=== PATIENT | male | born 1955 | race African-American/Black ===

== ENCOUNTER 2021-02-28 15:40 | Inpatient (IN) | payer BC, SELFPAY ==
[~2021-02-28] VITALS: Ht 177.8 cm; Wt 71.7 kg
[2021-02-28 15:40] VITALS: BP 129/92
[~2021-02-28 15:40] MED LIST: ALBU0.0952 IH; FLUT1DSK19 IH; [UNRECOGNIZED DRUG - CODE] IH
--- NOTE | 2021-02-28 15:45 | NUR ---
65 Y/O MALE BIBA FROM HOME C/O SOB XYESTERDAY. SPO2 68% RA, PT WAS PUT ON 15L NONREBREATHER WITH SPO2 98%. PT GIVEN ALBUTEROL TREATMENT AND WAS PLACED ON CPAP. PER MEDICS, DIMINISHED LUNG SOUNDS BILATERAL. LUNG SOUNDS CRACKLES. ABD SOFT NON TENDER. PT DENIES ANY PAIN. PMH:DENIES ALLERGIES: PREDNISONE
--- NOTE | 2021-02-28 15:45 | NUR ---
pt BIBA to bed 02 via satya. RN and RT at bedside.
--- NOTE | 2021-02-28 15:47 | NUR ---
PT PLACED ON BIPAP. SETTINGS 12/5 R 10 AND FIO2 28%. PT IS TACHYPNEIC SPO2 ADEQUATE AT THIS TIME. BIPAP IS PLUGGED INTO A RED OUTLET WITH ALARMS ON AND FUNCTIONING. WILL CONTINUE TO MONITOR.
[2021-02-28] MEDS ORDERED: ALBUTEROL SULFATE/IPRATROPIU 3 ML SOL IH ONE (16:05)
--- NOTE | 2021-02-28 16:10 | NUR ---
XRAY AT BEDSIDE
[2021-02-28 16:12] LABS: BASOPHILS # (AUTO) 0.2 K/uL (0.00-0.22); BASOPHILS % (AUTO) 0.9 % (0.0-2.0); EOSINOPHILS % (AUTO) 0.1 % (0.0-4.0); LYMPHOCYTES # (AUTO) 0.9 K/uL (2.0-11.5); NEUTROPHILS # (AUTO) 16.1 K/uL (1.8-7.7); RED BLOOD CELL COUNT(AUTO) 5.92 MIL/uL (4.20-6.10)
--- NOTE | 2021-02-28 16:15 | NUR ---
RT AT BEDSIDE PERFORMING BREATHING TX
--- NOTE | 2021-02-28 16:20 | NUR ---
[facility] THERAPY AND RESPIRATORY DRUG GIVEN ORDERED
[2021-02-28 16:27] LABS: HEMATOCRIT 44.5 % (36-52); HEMOGLOBIN 13.8 g/dL (12.0-18.0); MEAN CORPUSCULAR HEMOGLOBIN 23 pg (27-31); MEAN CORPUSCULAR HGB CONC 31 g/dL (33-37); MEAN CORPUSCULAR VOLUME 75.1 fL (80-94); MONOCYTES # (AUTO) 1.3 K/uL (0.8-1.0); MONOCYTES % (AUTO) 6.9 % (1.7-9.3); NEUTROPHILS % (AUTO) 87.1 % (42.2-75.2); PLATELET COUNT (AUTO) 352 K/uL (140-450); RED CELL DISTRIBUTION WIDTH 16.1 % (11.6-13.7); WHITE BLOOD COUNT (AUTO) 18.5 K/uL (4.8-10.8)
[2021-02-28 16:31] LABS: ALBUMIN 3.5 g/dL (3.4-5.0); ANION GAP 15.5 (8-16); CARBON DIOXIDE 26.6 mmol/L (21-32); CREATININE 1.2 mg/dL (0.6-1.3); POTASSIUM 4.1 mmol/L (3.5-5.1); TOTAL BILIRUBIN 0.6 mg/dL (0.0-1.0)
[2021-02-28] MEDS ORDERED: VANCOMYCIN IV SCH (16:40)
[2021-02-28] MEDS ORDERED: CEFEPIME 2,000 MG in DEXTROSE 5% 100 ML IV ONE (16:40)
[2021-02-28] MEDS ORDERED: DEXTROSE 5% IV SCH (16:40)
[2021-02-28] MEDS ORDERED: VANCOMYCIN 1,000 MG VIAL ONE (16:41)
[2021-02-28] MEDS ORDERED: VANCOMYCIN 500 MG VIAL ONE (16:41)
[2021-02-28] MEDS ORDERED: CEFEPIME 2,000 MG VIAL IV ONE (16:41)
--- NOTE | 2021-02-28 17:00 | NUR ---
PT STATES HE DOES NOT KNOW HIS HOME MEDICATIONS. LEFT MESSAGE FOR PT'S SAURABH.
[2021-02-28 17:28] VITALS: BP 121/87
[2021-02-28] MEDS ORDERED: guaiFENesin DM 200/20 MG-10 ML 10 ML UDC PO PRN (18:05)
[2021-02-28] MEDS ORDERED: ONDANSETRON 4 MG/2 ML VIAL IM/IVP PRN (18:05)
[2021-02-28] MEDS ORDERED: ACETAMINOPHEN 325 MG TAB PO PRN (18:05)
[2021-02-28] MEDS ORDERED: HYDROcodone/APAP 7.5/325 MG 1 TAB PO PRN (18:05)
[2021-02-28] MEDS ORDERED: ZOLPIDEM 5 MG TAB PO PRN (18:05)
[2021-02-28] MEDS ORDERED: ALBUTEROL SULFATE/IPRATROPIU 3 ML SOL IH PRN (18:05)
[2021-02-28] MEDS ORDERED: DOCUSATE SODIUM 100 MG GELCAP PO PRN (18:05)
[2021-02-28] MEDS ORDERED: POTASSIUM CHLORIDE 10 MEQ TABER PO PRN (18:05)
--- NOTE | 2021-02-28 18:08 | NUR ---
PT UNABLE TO PROVIDE URINE, ERMD MADE AWARE
--- NOTE | 2021-02-28 19:11 | NUR ---
Pt report given to SUNIL GRIFFIN. Transfer of care at this time.
--- NOTE | 2021-02-28 19:11 | NUR ---
REPORT RECEIVED FROM ELIAS SMITH. TRANSFER OF CARE AT THIS TIME.
--- NOTE | 2021-02-28 19:20 | NUR ---
PT IS SITTING UP IN BED. PT DENIED SOB, STATED HE FEELS BETTER. LUNG SOUNDS ARE DIMINISHED AT BASES (BILAT). ALL NEEDS MET AT THIS TIME. HOB ELEVATED. BED LOCKED IN LOWEST POSITION. SIDE RAILS X2.
[2021-02-28 19:26] LABS: PROTHROMBIN TIME 11.5 secs (10.8-13.4)
[2021-02-28] MEDS ORDERED: PIPERACILLIN/TAZOBACTAM 3.375 GM VIAL IV ONE ×2 (19:30→23:25)
[2021-02-28 19:35] LABS: CHOL/HDL RATIO 3.1 (1-4.5); FREE T4 (FREE THYROXINE) 0.85 ng/dL (0.76-1.46); MAGNESIUM 1.7 mg/dL (1.8-2.4); PHOSPHORUS 3.3 mg/dL (2.5-4.9); THYROID STIMULATING HORMONE 0.88 uIU/mL (0.34-3.74)
[2021-02-28 19:39] VITALS: BP 124/89
--- NOTE | 2021-02-28 19:39 | NUR ---
PT RECEIVED IN ED ON BIPAP 07/12 f10 28%. BIPAP IS PLUGGED INTO RED OUTLET W/ ALARMS ON AND AUDIBLE WILL CONTINUE TO MONITOR.
[2021-02-28] MEDS: PIPERACILLIN/TAZOBACTAM 3.375 GM in DEXTROSE 5% 50 ML IV SCH (19:40)
[2021-02-28] MEDS ORDERED: PANT40EC PO (19:47)
[2021-02-28] MEDS ORDERED: TACR1CAP17 PO (19:47)
[2021-02-28] MEDS ORDERED: [UNRECOGNIZED DRUG - CODE] PO (19:47)
[2021-02-28] MEDS ORDERED: CEL250 PO (19:47)
[2021-02-28] MEDS ORDERED: AZIT250T4 PO (19:47)
[2021-02-28] MEDS ORDERED: PRED5TAB7 PO (19:47)
[2021-02-28] MEDS ORDERED: SULF-58 PO (19:47)
[2021-02-28] MEDS: ALBUTEROL SULFATE/IPRATROPIU 3 ML SOL IH SCH (19:50)
--- NOTE | 2021-02-28 19:52 | NUR ---
CALLED AND GAVE REPORT TO ELIAS GARCIAS [id number].
--- NOTE | 2021-02-28 20:58 | NUR ---
Patient will be admitted to care of DR HYDE. Admited to TELE. Will go to room 106B. Belongings list completed. Report to ELIAS GARCIAS.
--- NOTE | 2021-02-28 21:10 | NUR ---
PT TRANSPORTED FROM ED TO 106. PT AMBULATED TO BED W/ ASSISTANCE. PT REMAINS ON BIPAP W/ NO CHANGES TO SETTINGS. BIPAP WAS PLUGGED INTO RED OUTLET AND ALARMS REMAIN ON AND AUDIBLE. VITAL MACHINE IS PLUGGED IN AND CONNECTED TO PT. WILL CONTINUE TO MONITOR
--- NOTE | 2021-02-28 21:11 | NUR ---
ADMITTED A MALE PATIENT FROM ER VIA [place] [id number]. CHIEF COMPLAINT OF SOB DX: PNA AND ACUTE RESPIRATORY FAILURE UNDER THE CARE OF DR. HYDE. ON BIPAP AT 28% FIO2 TOLERATING WELL. NO RESPIRATORY DISTRESS NOTED. ORIENTED TO ROOM, CALL LIGHT, STAFF. AMBULATORY. MRSA SCREENING DONE. SAFETY PRECAUTIONS IN PLACE. CALL LIGHT WITHIN REACH.
--- NOTE | 2021-02-28 21:35 | NUR ---
APPROX 21:20 PT REMOVED FROM BIPAP TO EAT AND PLACED ON 5LNC W/ NO DISTRESS NOTED. PT DENIES SOB POST 10 MIN ON 5LNC W/ HR 108 SPO2 97% f18. BIPAP REMAINS ON STDBY AT BEDSIDE WILL CONTINUE TO MONITOR
[2021-02-28] MEDS: NACL 0.9% 1,000 ML IV SCH (21:37)
--- NOTE | 2021-02-28 22:12 | NUR ---
PT REPLACED ON BIPAP W/ SETTINGS THEY PREV WERE
[2021-03-01] VITALS: BP 100/57
[2021-03-01] MEDS: PIPERACILLIN/TAZOBACTAM 3.375 GM in DEXTROSE 5% 50 ML IV SCH ×2 (00:24→05:05)
--- NOTE | 2021-03-01 01:16 | NUR ---
PT MOVED FROM RM 106 TO RM 114 BY RT GEOVANY ARMENTA. PT WAS FOUND ON NC I WAS INFORMED HE WAS EATING. PT REPLACED BACK ON BIPAP AND PT IS NOW SLEEPING COMFORTABLY W/ NO DISTRESS NOTED WILL CONTINUE TO MONITOR
--- NOTE | 2021-03-01 03:30 | NUR ---
PT WAS REMOVED FROM BIPAP PER PT REQUEST W/ NO DISTRESS NOTED AND PLACED ON 4LNC. PT DENIES SOB 10MIN POST 4LNC PLACEMENT. BIPAP REMAINS AT BEDSIDE ON STDBY AND PLUGGED INTO RED OUTLET. WILL CONTINUE TO MONITOR
--- NOTE | 2021-03-01 03:55 | NUR ---
PATIENT IV WAS PULLED OUT. REFUSED TO REINSERT. TEXTED DR. HYDE AWAITING FOR ANSWER.
[2021-03-01] MEDS: NACL 0.9% 1,000 ML IV SCH (04:05)
[2021-03-01] MEDS ORDERED: PIPERACILLIN/TAZOBACTAM 3.375 GM VIAL IV ONE (04:50)
[2021-03-01 06:00] VITALS: BP 105/67
[2021-03-01 06:50] LABS: BASOPHILS # (AUTO) 0.1 K/uL (0.00-0.22); BASOPHILS % (AUTO) 0.6 % (0.0-2.0); EOSINOPHILS # (AUTO) 0.3 K/uL (0-0.4); EOSINOPHILS % (AUTO) 2.9 % (0.0-4.0); HEMATOCRIT 40.8 % (36-52); HEMOGLOBIN 12.7 g/dL (12.0-18.0); LYMPHOCYTES # (AUTO) 1.1 K/uL (2.0-11.5); LYMPHOCYTES % (AUTO) 9.9 % (20.5-51.1); MEAN CORPUSCULAR HEMOGLOBIN 24 pg (27-31); MEAN CORPUSCULAR HGB CONC 31 g/dL (33-37); MEAN CORPUSCULAR VOLUME 76.1 fL (80-94); MONOCYTES # (AUTO) 1.1 K/uL (0.8-1.0); MONOCYTES % (AUTO) 9.7 % (1.7-9.3); NEUTROPHILS # (AUTO) 8.6 K/uL (1.8-7.7); NEUTROPHILS % (AUTO) 76.9 % (42.2-75.2); PLATELET COUNT (AUTO) 327 K/uL (140-450); RED BLOOD CELL COUNT(AUTO) 5.37 MIL/uL (4.20-6.10); RED CELL DISTRIBUTION WIDTH 16.4 % (11.6-13.7); WHITE BLOOD COUNT (AUTO) 11.1 K/uL (4.8-10.8)
[2021-03-01 06:59] LABS: ANION GAP 9.7 (8-16); CREATININE 1.5 mg/dL (0.6-1.3); POTASSIUM 3.7 mmol/L (3.5-5.1)
[2021-03-01] MEDS: ALBUTEROL SULFATE/IPRATROPIU 3 ML SOL IH SCH (07:47)
--- NOTE | 2021-03-01 07:47 | NUR ---
RECEIVED ON HUMIDIFIED SUPPLEMENTAL OXYGEN AT 5 LPM VIA NC OFF BIPAP TO MASK LOC ASLEEP RESTING COMFORTABLY NO EVIDENCE OF PULMONARY DISTRESS NOTED GOOD CHEST RISE AND AERATION THROUGHOUT BILATERAL LUNG BARRERA AIRWAY PATENT POST HHN THERAPY TITRATED FIO2 TO 3 LPM EDUCATION PROVIDED ON NECESSITATION OF OBTAINING SPUTUM CULTURE PLACED SPECIMEN CUP ON PATIENT TABLE AT BEDSIDE ELISEO/RN NOTIFIED OF PATIENT OFF BIPAP WITH NO SOB NOTED, SUPPLEMENTAL OXYGEN TITRATION AND SPUTUM SPECIMEN CUP AT BEDSIDE
[2021-03-01 08:00] VITALS: BP 96/62
[2021-03-01] MEDS ORDERED: PANTOPRAZOLE 40 MG TABEC PO SCH (09:00)
--- NOTE | 2021-03-01 09:30 | NUR ---
REVIEWED RESPIRATORY STATUS WITH DR. CORTES CARRASCO: CHANGE BIPAP TO PRN FOR SOB WITH CURRENT SETTINGS 07/12 R10 28%
--- NOTE | 2021-03-01 09:37 | NUR ---
AM SCHEDULED MEDS GIVEN, MEDS EDUCATION PROVIDED, PATIENT VERBALIZED UNDERSTANDING. PATIENT IS ON 3 LPM VIA NC, SPO2 AT 100% AT THIS TIME. AWAKE AND RESTING ON BED. DENIED OF ANY DISTRESS. DISCUSSED PLAN OF CARE. PATIENT SAID OK. REQUESTED FOR SOME APPLE JUICE, PROVIDED. SAFETY MEASURES IN PLACE. INSTRUCTED PATIENT TO USE THE CALL LIGHT FOR ANY ASSISTANCE AND PATIENT AWARE.
[2021-03-01] MEDS ORDERED: VANCOMYCIN PER PHARMACY MC PRN (10:25)
[2021-03-01] MEDS ORDERED: MYCOPHENOLATE 250 MG CAP PO SCH ×2 (10:45→21:00)
[2021-03-01] MEDS ORDERED: VANCOMYCIN 750 MG in DEXTROSE 5% 250 ML IV SCH (11:00)
--- NOTE | 2021-03-01 11:47 | NUR ---
ATTENDED TO PATIENT'S CALL LIGHT, PATIENT IS YELLING, " YOU DON'T HAVE TO SAY ANYTHING. EITHER YOU LET MY TO COME IN HERE RIGHT NOW, OR I WILL WALK OUT. I AM NOT A CHILD". EXPLAINED TO PATIENT, PATIENT SHOUTED, "SHUT UP! YOU DON'T HAVE TO SAY ANYTHING". DID NOT ALLOW ME TO SPEAK AND ASK THE SPRAY WORKER AND ME TO GET OUT OF THE ROOM. ESCALATED TO CHARGE NURSE.
--- NOTE | 2021-03-01 11:51 | NUR ---
DR HYDE IS TALKING TO PATIENT AT BEDSIDE. EXPLAINED TO PATIENT THAT HE IS NOT MEDICALLY CLEAR AND STABLE TO LEAVE THE HOSPITAL. PATIENT INSISTED TO TP LEAVE AND SHOUTED OFFENSIVE WORDS TO EVERYONE.
--- NOTE | 2021-03-01 11:56 | NUR ---
PATIENT SIGNED AMA, REMOVED IV, NO BLEEDING ON SITE, CANNULA INTACT. PATIENT CHANGED INTO HIS OWN CLOTHES AND TOOK ALL HIS BELONGING. ON THE PHONE WITH , TO ASK TO PICK HIM UP.
--- NOTE | 2021-03-01 11:58 | NUR ---
CLAY ARTISAN WALKED PATIENT OUT TO THE FRONT LOBBY. ALL BELONGINGS WITH PATIENT. PATIENT IS AMA AT THIS TIME.
[2021-03-01] MEDS ORDERED: predniSONE 5 MG TAB PO SCH (21:00)
[2021-03-03 12:07] LABS: T4 (THYROXINE) 6.8 ug/dL (4.5-12.0)
== END 2021-03-01 12:17 | disposition left against medical advice (07) | DRG 871 ==
LOC: MED 15:40 → MTU 17:24
PROVIDERS: ADMIT Family Medicine; ATTEND Family Medicine
PROC: 5A09357 Assistance with Respiratory Ventilation, Less than 24 Consecutive Hours, Continuous Positive Airway Pressure (ICD-10-PCS; principal; 2021-02-28)
DX: A41.9 Sepsis, unspecified organism (principal); J96.00 Acute respiratory failure, unspecified whether with hypoxia or hypercapnia; J69.0 Pneumonitis due to inhalation of food and vomit; J44.1 Chronic obstructive pulmonary disease with (acute) exacerbation; Z94.2 Lung transplant status; I10 Essential (primary) hypertension; Z20.822 Contact with and (suspected) exposure to COVID-19; Z88.8 Allergy status to other drugs, medicaments and biological substances; Z53.29 Procedure and treatment not carried out because of patient's decision for other reasons
CPT/HCPCS: 36415; 36600; 71045; 80048; 80053; 82150; 82803; 83036; 83690; 83735; 83880; 84100; 84436; 84439; 84443; 84479; 84484; 85025; 85610; 85730; 87040; 87081; 93005; 94640; 96365; 96367; 96375; 99285; J0692; J1644; J2543; J3370; J7030; J7060; J7517; U0003